=== PATIENT | female | born 1985 | race Hispanic/Latino ===

== ENCOUNTER 2018-11-12 06:32 | Emergency (ER) | payer SELFPAY ==
--- NOTE | 2018-11-12 09:15 | RAD REPORT ---
EXAM DESCRIPTION: US - Abdomen Exam Limited - 11/12/2018 8:16 am CLINICAL HISTORY: Abdominal pain. COMPARISON: None. FINDINGS: A 4.4 x 2 centimeter irregularly-shaped heterogeneous mass extends from the skin surface i nto the subcutaneous tissues anteriorly abutting the anterior abdominal wall musculature near the sit e of prior surgery. This area is palpable. IMPRESSION: 4.4 x 2 centimeter heterogeneous mass has nonspecific characteristics. It may represent an inflammatory mass. Hematoma/abscess probably are less likely considerations
--- NOTE | 2018-11-12 09:18 | ER ---
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 cc3 Patient said she's had this in 2007. Transition of care: patient was not received from another setting of care. Onset of symptoms was November 05, 2018. Risk Assessment: Do you want to hurt yourself or someone else? Patient reports no desire to harm self or others. Initial Sepsis Screen: Does the patient meet any 2 criteria? No. Patient's initial sepsis screen is negative. Does the patient have a suspected source of infection? No. Patient's initial sepsis screen is negative. Care prior to arrival: None. 06:40 Method Of Arrival: Ambulatory cc3 06:40 Acuity: ALEXANDER 4 cc3 Triage Assessment: 06:40 General: Appears in no apparent distress. comfortable, Behavior is calm, cooperative, cc3 appropriate for age. Pain: Complains of pain in incision site. EENT: No signs and/or symptoms were reported regarding the EENT system. Neuro: Level of Consciousness is awake, alert, obeys commands, Oriented to person, place, time, situation, Appropriate for age. Cardiovascular: Denies chest pain, Patient's skin is warm and dry. Respiratory: Airway is patent Respiratory effort is even, unlabored, Respiratory pattern is regular, symmetrical. 06:40 GI: Abdomen is round non-distended. cc3 06:40 : No signs and/or symptoms were reported regarding the genitourinary system. Derm: cc3 Reports felt a bump in her incision site. Musculoskeletal: Circulation, motion, and sensation intact. Range of motion: intact in all extremities. 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 - Social history:: Smoking status: Patient/guardian denies using tobacco, never smoked. - Ebola Screening: : No symptoms or risks identified at this time. Screenin:40 Abuse screen: Denies threats or abuse. Denies injuries from another. Nutritional cc3 screening: No deficits noted. Tuberculosis screening: No symptoms or risk factors identified. Fall Risk Ambulatory Aid- None/Bed Rest/Nurse Assist (0 pts). Gait- Normal/Bed Rest/Wheelchair (0 pts) Mental Status- Oriented to own ability (0 pts). Assessment: 07:06 Reassessment: Patient appears in no apparent distress at this time. Patient and/or sg family updated on plan of care and expected duration. Pain level reassessed. Patient is alert, oriented x 3, equal unlabored respirations, skin warm/dry/pink. pt calm, using personal cell phone laying supine in bed, bed in low and locked position call light within reach, pt remains on monitors at this time, awaiting orders will continue to monitor. Vital Signs: 06:40 BP 167 / 108; Pulse 75; Resp 19 S; Temp 98.2(O); Pulse Ox 95% on R/A; Weight 75.75 kg cc3 (R); Height 5 ft. 2 in. (157.48 cm) (R); 06:40 Body Mass Index 30.54 (75.75 kg, 157.48 cm) cc3 ED Course: 06:37 Patient arrived in ED. ds1 06:40 Arm band placed on right wrist. Patient notified of wait time. cc3 06:40 Patient has correct armband on for positive identification. Bed in low position. Call cc3 light in reach. Side rails up X 1. Pulse ox on. NIBP on. 06:42 Sánchez Burciaga PA is PHCP. jr8 06:42 Jordin Cali MD is Attending Physician. jr8 06:55 Triage completed. cc3 07:00 Report given to CARTER Grayson. cc3 07:06 Kenan Bond RN is Primary Nurse. sg 07:50 US Abdomen Limited In Process Unspecified. EDMS 08:20 Ultrasound completed. hr 09:16 Jimmie Cotton MD is Referral Physician. jr8 Administered Medications: No medications were administered Outcome: 09:17 Discharge ordered by . jr8 09:44 Patient left the ED. sg Signatures: Dispatcher [employer] Kenan Ann RN RN sg Rod, Haley hr Sanford, Fatoumata ds1 Sánchez Burciaga PA PA jr8 Vaishali aGmez cc3 Corrections: (The following items were deleted from the chart) 07:05 06:40 Respiratory: Airway is patent Respiratory effort is even, unlabored, Respiratory cc3 pattern is regular, symmetrical, cc3
--- NOTE | 2018-11-12 09:18 | EDPHYS ---
Physician Documentation [facility] Name: Erin Hurst Age: 33 yrs Sex: Female : 1985 Arrival Date: 11/12/2018 Time: 06:37 Bed 15 Private MD: ED Physician Jordin Cali HPI: 11/12 07:19 This 33 yrs old Female presents to ER via Ambulatory with complaints of jr8 Pain. 07:19 Patient stated that she has had pain and drainage over and old scar that jr8 started yesterday. Severity of symptoms: At their worst the symptoms were mild in the emergency department the symptoms are unchanged. The patient has not experienced similar symptoms in the past. The patient has not recently seen a physician. 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 - Social history:: Smoking status: Patient/guardian denies using tobacco, never smoked. - Ebola Screening: : No symptoms or risks identified at this time. ROS: 07:19 Eyes: Negative for injury, pain, redness, and discharge, ENT: Negative for injury, jr8 pain, and discharge, Neck: Negative for injury, pain, and swelling, Cardiovascular: Negative for chest pain, palpitations, and edema, Respiratory: Negative for shortness of breath, cough, wheezing, and pleuritic chest pain, Abdomen/GI: Negative for abdominal pain, nausea, vomiting, diarrhea, and constipation, Back: Negative for injury and pain, MS/Extremity: Negative for injury and deformity, Neuro: Negative for headache, weakness, numbness, tingling, and seizure. 07:19 Skin: Negative for injury, rash, and discoloration. Exam: 07:19 Eyes: Pupils equal round and reactive to light, extra-ocular motions intact. Lids and jr8 lashes normal. Conjunctiva and sclera are non-icteric and not injected. Cornea within normal limits. Periorbital areas with no swelling, redness, or edema. ENT: Nares patent. No nasal discharge, no septal abnormalities noted. Tympanic membranes are normal and external auditory canals are clear. Oropharynx with no redness, swelling, or masses, exudates, or evidence of obstruction, uvula midline. Mucous membranes moist. Neck: Trachea midline, no thyromegaly or masses palpated, and no cervical lymphadenopathy. Supple, full range of motion without nuchal rigidity, or vertebral point tenderness. No Meningismus. Cardiovascular: Regular rate and rhythm with a normal S1 and S2. No gallops, murmurs, or rubs. Normal PMI, no JVD. No pulse deficits. Respiratory: Lungs have equal breath sounds bilaterally, clear to auscultation and percussion. No rales, rhonchi or wheezes noted. No increased work of breathing, no retractions or nasal flaring. Back: No spinal tenderness. No costovertebral tenderness. Full range of motion. Skin: Warm, dry with normal turgor. Normal color with no rashes, no lesions, and no evidence of cellulitis. MS/ Extremity: Pulses equal, no cyanosis. Neurovascular intact. Full, normal range of motion. Neuro: Awake and alert, GCS 15, oriented to person, place, time, and situation. Cranial nerves II-XII grossly intact. Motor strength 5/5 in all extremities. Sensory grossly intact. Cerebellar exam normal. Normal gait. 07:19 Abdomen/GI: Inspection: obese scar(s), are noted in the lower abdomen, mild serous and bloody drainage noted to right lower abdomen. Firm hard tissue felt deep to that site. No erythema or defined abscess noted , Bowel sounds: active, Palpation: abdomen is soft and non-tender, in all quadrants, Indicators: McBurney's point is not tender, Bailey's sign is negative, Rovsing's sign is negative, Liver: tenderness, is not appreciated. Vital Signs: 06:40 BP 167 / 108; Pulse 75; Resp 19 S; Temp 98.2(O); Pulse Ox 95% on R/A; Weight 75.75 kg cc3 (R); Height 5 ft. 2 in. (157.48 cm) (R); 06:40 Body Mass Index 30.54 (75.75 kg, 157.48 cm) cc3 MDM: 06:42 Patient medically screened. jr8 09:16 Data reviewed: vital signs, nurses notes, radiologic studies, ultrasound, and as a jr8 result, I will discharge patient. Data interpreted: Pulse oximetry: on room air is 95 %. Interpretation: normal. Counseling: I had a detailed discussion with the patient and/or guardian regarding: the historical points, exam findings, and any diagnostic results supporting the discharge/admit diagnosis, radiology results, the need for outpatient follow up, a general surgeon, to return to the emergency department if symptoms worsen or persist or if there are any questions or concerns that arise at home. 11/12 07:19 Order name: US Abdomen Limited; Complete Time: 09:16 jr8 Administered Medications: No medications were administered Disposition: 11/12/18 09:17 Discharged to Home. 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 - Condition is Stable. - Discharge Instructions: Skin Abscess. - Prescriptions for Mobic 7.5 mg Oral Tablet - take 1 tablet by ORAL route once daily take with food; 7 tablet. Bactrim DS 800- 160 mg Oral Tablet - take 1 tablet by ORAL route every 12 hours for 7 days; 14 tablet. Tramadol 50 mg Oral Tablet - take 2 tablets by ORAL route every 8 hours as needed; 18 tablet. - Medication Reconciliation Form, Thank You Letter, Antibiotic Education, Prescription Opioid Use form. - Follow up: Jimmie Cotton MD; When: 1 week; Reason: Recheck today's complaints, Continuance of care, Re-evaluation by your physician. - Problem is new. - Symptoms have improved. Signatures: Dispatcher [employer] EDMS Kenan Bond RN RN Sánchez Gonzalez PA PA jr8 Vaishali Gamez cc3 Corrections: (The following items were deleted from the chart) 09:44 09:17 11/12/2018 09:17 Discharged to Home. Impression: Benign neoplasm of connective sg and other soft tissue of abdomen. Condition is Stable. Forms are Medication Reconciliation Form, Thank You Letter, Antibiotic Education, Prescription Opioid Use. Follow up: Jimmie Cotton; When: 1 week; Reason: Recheck today's complaints, Continuance of care, Re-evaluation by your physician. Problem is new. Symptoms have improved. jr8
[2018-11-12 09:49] VITALS: BP 167/108; TEMP 98.2; O2SAT 95
== END 2018-11-12 09:44 | disposition home or self-care (01) ==
LOC: ER 06:32
DX: D21.4 Benign neoplasm of connective and other soft tissue of abdomen (principal); I10 Essential (primary) hypertension; Z88.1 Allergy status to other antibiotic agents
CPT/HCPCS: 76705; 99283

== ENCOUNTER 2021-06-09 10:03 | Emergency (ER) | payer SELFPAY ==
[2021-06-09 10:25] LABS: Urine Blood Trace-lysed (Negative); Urine Glucose Negative (Negative); Urine Protein Negative (Negative); Urine Specific Gravity 1.025 (1.005-1.030); Urine pH 6.5 (5.0-7.0)
[2021-06-09 11:31] LABS: Urine Specific Gravity/Preg 1.025 (1.005-1.030)
--- NOTE | 2021-06-09 11:52 | RAD REPORT ---
EXAM DESCRIPTION: US - Extremity Nonvascular Complete - 06/09/2021 11:33 am CLINICAL HISTORY: r/o abscess COMPARISON: CT HEAD SPINE CAP W CONTRAST dated 05/20/2011 FINDINGS: Complex subcutaneous fluid collection near the right inguinal canal measuring 4 cm x 3.9 c m. Question some retracting clot within portions of the collection. IMPRESSION: Complex superficial fluid collection in the right inguinal region may be a hematoma as t here is a suggestion of some retracting clot. The sterility is indeterminate by ultrasound. The patie nt had a soft tissue mass at this location on the CT from 05/20/2011. One consideration would be an e ndometrioma, particularly if the patient has had a prior . Nonemergent MRI with without cont rast of the pelvis could better evaluate.
--- NOTE | 2021-06-09 12:10 | EDPHYS ---
Physician Documentation [facility] Name: Erin Hurst Age: 36 yrs Sex: Female : 1985 Arrival Date: 06/09/2021 Time: 10:06 Bed 18 Private MD: ED Physician Favio Palacios HPI: 06/09 18:49 This 36 yrs old Female presents to ER via Ambulatory with complaints of kdr Abdominal Pain. 18:49 The patient presents with abdominal pain right lower quadrant. Onset: The kdr symptoms/episode began/occurred suddenly, today. The symptoms do not radiate. Associated signs and symptoms: none. The symptoms are described as achy, sharp. Modifying factors: The symptoms are alleviated by nothing, the symptoms are aggravated by movement, pressure, touching the area. Severity of pain: At its worst the pain was moderate severe this morning, today, in the emergency department the pain has improved markedly. The patient has experienced similar episodes in the past, chronically, Has been occurring intermittently for years. The patient has not recently seen a physician. Patient has had right lower quadrant pain abdominal pain for many years since her last which was approximately 13 years ago. The pain comes and goes without any specific precipitating event. She does not appear to be toxic or in any way acutely ill in the ED at this time. The pain does seem to be associated with her incision on the right aspect. The time to time it will drain a bloody material but otherwise just normally hurts from time to time . 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 - Social history:: Smoking status: Patient denies any tobacco usage or history of. ROS: 18:49 Constitutional: Negative for fever, chills, and weight loss, Eyes: Negative for injury, kdr pain, redness, and discharge, ENT: Negative for injury, pain, and discharge, Neck: Negative for injury, pain, and swelling, Cardiovascular: Negative for chest pain, palpitations, and edema, Respiratory: Negative for shortness of breath, cough, wheezing, and pleuritic chest pain, Back: Negative for injury and pain, : Negative for injury, bleeding, discharge, and swelling, MS/Extremity: Negative for injury and deformity, Skin: Negative for injury, rash, and discoloration, Neuro: Negative for headache, weakness, numbness, tingling, and seizure activity. Psych: Negative for depression, anxiety, suicide ideation, homicidal ideation, and hallucinations, Allergy/Immunology: Negative for hives, rash, and allergies, Endocrine: Negative for neck swelling, polydipsia, polyuria, polyphagia, and marked weight changes, Hematologic/Lymphatic: Negative for swollen nodes, abnormal bleeding, and unusual bruising. 18:49 Abdomen/GI: Positive for abdominal pain, Occasionally a draining cystic structure on the right lower quadrant on the lateral aspect of the incision, Negative for nausea, vomiting, and diarrhea, abdominal cramps, abdominal distension, black/tarry stool, rectal pain, rectal bleeding. Exam: 18:49 Constitutional: This is a well developed, well nourished patient who is awake, alert, kdr and in no acute distress. Head/Face: Normocephalic, atraumatic. Eyes: Pupils equal round and reactive to light, extra-ocular motions intact. Lids and lashes normal. Conjunctiva and sclera are non-icteric and not injected. Cornea within normal limits. Periorbital areas with no swelling, redness, or edema. Neck: Trachea midline, no thyromegaly or masses palpated, and no cervical lymphadenopathy. Supple, full range of motion without nuchal rigidity, or vertebral point tenderness. No Meningismus. Chest/axilla: Normal chest wall appearance and motion. Nontender with no deformity. No lesions are appreciated. Cardiovascular: Regular rate and rhythm with a normal S1 and S2. No gallops, murmurs, or rubs. Normal PMI, no JVD. No pulse deficits. Respiratory: Lungs have equal breath sounds bilaterally, clear to auscultation and percussion. No rales, rhonchi or wheezes noted. No increased work of breathing, no retractions or nasal flaring. Back: No spinal tenderness. No costovertebral tenderness. Full range of motion. Skin: Warm, dry with normal turgor. Normal color with no rashes, no lesions, and no evidence of cellulitis. MS/ Extremity: Pulses equal, no cyanosis. Neurovascular intact. Full, normal range of motion. Neuro: Awake and alert, GCS 15, oriented to person, place, time, and situation. Cranial nerves II-XII grossly intact. Motor strength 5/5 in all extremities. Sensory grossly intact. Cerebellar exam normal. Normal gait. Psych: Awake, alert, with orientation to person, place and time. Behavior, mood, and affect are within normal limits. 18:49 Abdomen/GI: Inspection: distension, obese Bowel sounds: active, Palpation: soft, mild abdominal tenderness, in the right lower quadrant, There is a superficial possibly cystic structure on the right lateral aspect of the prior incision. It is minimally tender and there is no drainage. It is not fluctuant. It is not warm or erythematous, mass, is not appreciated, rebound tenderness, is not appreciated. Vital Signs: 10:12 BP 145 / 101; Pulse 97; Resp 17; Temp 98.5(TE); Pulse Ox 100% on R/A; Weight 74.84 kg tw2 (R); Height 5 ft. 2 in. (157.48 cm) (R); Pain 06/06; 10:12 Body Mass Index 30.18 (74.84 kg, 157.48 cm) tw2 10:12 "when it comes" tw2 MDM: 12:10 Patient medically screened. kdr 18:55 Data reviewed: vital signs, nurses notes. Counseling: I had a detailed discussion with kdr the patient and/or guardian regarding: the historical points, exam findings, and any diagnostic results supporting the discharge/admit diagnosis, lab results, radiology results, the need for outpatient follow up. 06/09 10:25 Order name: Urine Dipstick-Ancillary; Complete Time: 12:02 EDMS 06/09 10:31 Order name: Urine --Ancillary (enter results); Complete Time: 12:02 bd 06/09 10:44 Order name: Basic Metabolic Panel kdr 06/09 10:44 Order name: CBC with Diff kdr 06/09 10:44 Order name: Hepatic Function kdr 06/09 10:44 Order name: Lipase kdr 06/09 10:44 Order name: IV Saline Lock; Complete Time: 12:44 kdr 06/09 10:44 Order name: Labs collected and sent; Complete Time: 12:44 kdr 06/09 11:32 Order name: Extremity Nonvascular Complete; Complete Time: 12:02 EDMS Administered Medications: No medications were administered Disposition Summary: 06/09/21 12:10 Discharge Ordered Location: Home kdr Problem: an ongoing problem kdr Symptoms: have improved kdr Condition: Stable kdr Diagnosis - Lower abdominal pain, unspecified - Right lower quadrant kdr - Nonspecific fluid collection superficially in the right lower quadrant. kdr Followup: kdr - With: Private Physician - When: 2 - 3 days - Reason: If symptoms return, Further diagnostic work-up, Recheck today's complaints, Continuance of care, Re-evaluation by your physician Discharge Instructions: - Abdominal Pain, Adult kdr - Thyroglossal Cyst Removal, Care After kdr - Discharge Summary Sheet tw2 Forms: - Medication Reconciliation Form kdr - Thank You Letter kdr - Prescription Opioid Use kdr Prescriptions: - Tramadol 50 mg Oral Tablet - take 1 tablet by ORAL route every 8 hours as needed; 12 tablet; Refills: 0, kdr Product Selection Permitted Signatures: Dispatcher [employer] EDMS Favio Palacios MD MD kdr Kylee Suero RN RN tw2 Corrections: (The following items were deleted from the chart) 11:32 10:52 Abdomen Limited+[id number] ordered. EDMN EDMS
--- NOTE | 2021-06-09 12:10 | ER ---
Nurse's Notes [facility] Name: Erin Hurst Age: 36 yrs Sex: Female : 1985 Arrival Date: 06/09/2021 Time: 10:06 Bed 18 Private MD: Diagnosis: Lower abdominal pain, unspecified-Right lower quadrant;Nonspecific fluid collection superficially in the right lower quadrant. Presentation: 06/09 10:09 Chief complaint: Patient states: i keep having this sharp pain right on my tw2 incision right where the scar is and it is turning purple. the youngest is 13 years old. and sometimes it drains sometimes and it just hurts. the only way it eases the pain is if i lay on my stomach. it comes and goes. Coronavirus screen: At this time, the client does not indicate any symptoms associated with coronavirus-19. Ebola Screen: Patient denies travel to an Ebola-affected area in the 21 days before illness onset. 10:09 Method Of Arrival: Ambulatory tw2 10:15 Initial Sepsis Screen: Does the patient meet any 2 criteria? HR > 90 bpm. Does the tw2 patient have a suspected source of infection? No. Patient's initial sepsis screen is negative. Risk Assessment: Do you want to hurt yourself or someone else? Patient reports no desire to harm self or others. Onset of symptoms was June 09, 2021. 10:15 Acuity: ALEXANDER 3 tw2 Triage Assessment: 10:13 General: Appears in no apparent distress. uncomfortable, Behavior is calm, cooperative, tw2 appropriate for age. Pain: Complains of pain in abdomen and pelvis. GI: Reports lower abdominal pain, upper abdominal pain. 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 - Social history:: Smoking status: Patient denies any tobacco usage or history of. Screenin:17 Abuse screen: Denies threats or abuse. Nutritional screening: No deficits noted. tw2 Tuberculosis screening: No symptoms or risk factors identified. Fall Risk None identified. Assessment: 10:17 Reassessment: pt given urine specimen cup for sample collection at this time. tw2 12:47 GI: Bowel sounds present X 4 quads. Abd is soft. ld1 Vital Signs: 10:12 BP 145 / 101; Pulse 97; Resp 17; Temp 98.5(TE); Pulse Ox 100% on R/A; Weight 74.84 kg tw2 (R); Height 5 ft. 2 in. (157.48 cm) (R); Pain 10/10; 10:12 Body Mass Index 30.18 (74.84 kg, 157.48 cm) tw2 10:12 "when it comes" tw2 ED Course: 10:06 Patient arrived in ED. mr 10:06 Favio Palacios MD is Attending Physician. kdr 10:13 Arm band placed on. tw2 10:15 Triage completed. tw2 10:15 Dean Waller RN is Primary Nurse. ch5 10:15 Bed in low position. Call light in reach. tw2 10:25 Urine collected: clean catch specimen, cloudy. mb4 11:33 Extremity Nonvascular Complete In Process Unspecified. EDMS 11:51 Assisted to bathroom. mb4 12:03 Inserted saline lock: 22 gauge in right antecubital area, using aseptic technique. mb4 Blood collected. 12:03 Initial lab(s) drawn, by la, sent to lab. mb4 12:46 No provider procedures requiring assistance completed. IV discontinued, intact, ld1 bleeding controlled, No redness/swelling at site. Administered Medications: No medications were administered Outcome: 12:10 Discharge ordered by . kdr 12:47 Discharged to home ambulatory. ld1 12:47 Condition: stable 12:47 Discharge instructions given to patient, Instructed on discharge instructions, follow up and referral plans. medication usage, Demonstrated understanding of instructions, follow-up care, medications, Prescriptions given X 1. 12:47 Patient left the ED. ld1 Signatures: Dispatcher [employer] EDMS Favio Palacios MD MD kdr Rivera, Mary mr Kylee Suero RN RN tw2 Ludmila Fierro mb4 Ivet Nance RN RN ld1 Sridhar, Christopher, RN RN ch5
[2021-06-09 12:24] LABS: Basophils % 0.6 % (0-1.3); Hematocrit 40.4 % (36.0-45.0); Lymphocytes % 29.3 % (15.3-44.8); MPV 8.6 fL (7.6-11.3); RBC Red Blood Cell Count 4.67 M/uL (3.86-4.86)
[2021-06-09 12:33] LABS: ALT/SGPT 72 U/L (12-78); AST/SGOT 192 U/L (15-37); Albumin 4.1 g/dL (3.4-5.0); Alkaline Phosphatase 102 U/L (45-117); BUN Blood Urea Nitrogen 8 mg/dL (7-18); Bicarbonate 26 mmol/L (21-32); Bilirubin Direct < 0.1 mg/dL (0-0.2); Bilirubin Total 0.3 mg/dL (0.2-1.0); Glucose Level 96 mg/dL (74-106); Lipase 145 U/L (73-393); Potassium 3.7 mmol/L (3.5-5.1); Protein, Total 8.7 g/dL (6.4-8.2); Sodium Level 140 mmol/L (136-145)
[2021-06-09 13:15] VITALS: BP 145/101; TEMP 98.5; O2SAT 100
== END 2021-06-09 12:47 | disposition home or self-care (01) ==
LOC: ER 10:03
DX: R22.2 Localized swelling, mass and lump, trunk (principal); I10 Essential (primary) hypertension; F41.9 Anxiety disorder, unspecified
CPT/HCPCS: 36415; 76881; 80048; 80076; 81003; 81025; 83690; 85025; 99284

== ENCOUNTER 2022-08-28 19:15 | Emergency (ER) | payer SELFPAY ==
[2022-08-28 21:05] LABS: Absolute Lymphocytes (CBC) 2.4 K/uL (0.7-4.9); Hematocrit 40.7 % (36.0-45.0); Lymphocytes % 28.3 % (15.3-44.8); MCV 82.2 fL (80-100); MPV 8.3 fL (7.6-11.3); RBC Red Blood Cell Count 4.95 M/uL (3.86-4.86)
[2022-08-28 21:08] LABS: Urine Blood Trace-intact (Negative); Urine Glucose Negative (Negative); Urine Protein 2+ (Negative); Urine Specific Gravity >=1.030 (1.005-1.030); Urine pH 5.5 (5.0-7.0)
[2022-08-28 21:11] LABS: Protime INR 1.01
[2022-08-28 21:26] LABS: Barbiturates NEGATIVE (NEGATIVE); Benzodiazepines NEGATIVE (NEGATIVE); Cocaine NEGATIVE (NEGATIVE); METHAMPHETAM NEGATIVE (NEGATIVE); Methadone NEGATIVE (NEGATIVE); Opiates NEGATIVE (NEGATIVE); Phencyclidine NEGATIVE (NEGATIVE); THC Cannibis NEGATIVE (NEGATIVE)
[2022-08-28 21:37] LABS: ALT/SGPT 56 U/L (13-56); AST/SGOT 38 U/L (15-37); Alkaline Phosphatase 126 U/L (45-117); BUN Blood Urea Nitrogen 8 mg/dL (7-18); Bicarbonate 27 mmol/L (21-32); Bilirubin Direct 0.1 mg/dL (0-0.2); Bilirubin Total 0.3 mg/dL (0.2-1.0); Glomerular Filtration Rate 113 ml/min (=/>90); Glucose Level 107 mg/dL (74-106); Potassium 3.3 mmol/L (3.5-5.1); Sodium Level 138 mmol/L (136-145)
[2022-08-28 21:38] LABS: NT PRO-BNP 44 pg/mL (<125); Protein, Total 8.9 g/dL (6.4-8.2); Troponin High Sensitivity 5.2 pg/mL (<58.9)
--- NOTE | 2022-08-28 22:49 | ER ---
Nurse's Notes [facility] Name: Erin Hurst Age: 37 yrs Sex: Female : 1985 Arrival Date: 08/28/2022 Time: 19:17 Bed 14 Private MD: Diagnosis: Anxiety disorder, unspecified;Hypokalemia Presentation: 08/28 19:32 Chief complaint: Patient states: corporate compliance officer showed up at house due to argument kr3 between patient and her mother. Her phone got cut off and she feels like someone is trying to hack her phone because it has been hacked before. the officers brought her to the hospital to be checked out for AMS. Coronavirus screen: Vaccine status: Patient reports being unvaccinated. Client denies travel out of the [place] in the last 14 days. Ebola Screen: Patient denies travel to an Ebola-affected area in the 21 days before illness onset. Initial Sepsis Screen: Does the patient meet any 2 criteria? No. Patient's initial sepsis screen is negative. Does the patient have a suspected source of infection? No. Patient's initial sepsis screen is negative. Risk Assessment: Do you want to hurt yourself or someone else? Patient reports no desire to harm self or others. Onset of symptoms was August 28, 2022. 19:32 Method Of Arrival: Law Enforcement: Mary ESTRADA kr3 19:32 Acuity: ALEXANDER 4 kr3 Triage Assessment: 19:41 General: Appears distressed, comfortable, Behavior is cooperative, anxious, crying. kr3 Historical: - Allergies: 19:40 No Known Allergies; kr3 - Home Meds: 23:58 None [Active]; kb3 - PMHx: 19:40 Anxiety; Hypertension; kr3 - PSHx: 19:40 section; kr3 - Immunization history:: Adult Immunizations not up to date. - Social history:: Smoking status: Patient denies any tobacco usage or history of. Screenin:00 [facility] ED Fall Risk Assessment (Adult) History of falling in the last 3 months, kb3 including since admission No falls in past 3 months (0 pts) Confusion or Disorientation No (0 pts) Intoxicated or Sedated No (0 pts) Impaired Gait No (0 pts) Mobility Assist Device Used No (0 pt) Altered Elimination No (0 pt) Score/Fall Risk Level 0 - 2 = Low Risk Oriented to surroundings, Maintained a safe environment, Educated pt \\T\\ family on fall prevention, incl call for assistance when getting out of bed, Assessed \\T\\ reinforced patient's understanding of fall precautions, Provided non-skid footwear, Hourly rounding (assess needs \\T\\ fall precautionary measures) done, Used ambulatory aids as needed (educated on \\T\\ assisted with), Used gait belt as appropriate. Abuse screen: Denies threats or abuse. Denies injuries from another. Nutritional screening: No deficits noted. Tuberculosis screening: No symptoms or risk factors identified. Assessment: 22:00 General: Appears in no apparent distress. Behavior is calm, cooperative, Received care kb3 of pt from [facility]. Pt is AAO x4. Reports that her phone was cut off and she thought "someone might be messing with her" so she called the police who suggested she come to the ER for evaluation. Pt reports hx of anxiety and HTN but no other medical or psychiatric issues. . 22:00 Pain: Denies pain. Neuro: Level of Consciousness is awake, alert, obeys commands, kb3 Oriented to person, place, time, situation, [place] are equal bilaterally Moves all extremities. Gait is steady, Speech is normal, Facial symmetry appears normal, Pupils are PERRLA, Pupil Size: 4 Denies weakness dizziness, headache. Vital Signs: 19:32 BP 163 / 125; Pulse 94; Resp 18; Temp 99.0; Pulse Ox 97% on R/A; Weight 77.56 kg; kr3 Height 5 ft. 2 in. (157.48 cm); Pain 2/10; 21:57 BP 149 / 113; Pulse 84; Resp 20; Pulse Ox 100% ; kb3 23:30 BP 141 / 101; Pulse 82; Resp 20; Pulse Ox 99% ; kb3 19:32 Body Mass Index 31.28 (77.56 kg, 157.48 cm) kr3 NIH Stroke Scale Scores: 22:44 NIHSS Score: 0 [facility] ED Course: 19:17 Patient arrived in ED. jj6 19:40 Triage completed. kr3 19:42 Arm band placed on right wrist. kr3 20:27 Rodrigo Land MD is Attending Physician. [facility] 20:55 Inserted saline lock: 22 gauge in right antecubital area, using aseptic technique. mb4 Blood collected. 20:55 Initial lab(s) drawn, by me, sent to lab. mb4 21:51 Alejandra Sánchez, RN is Primary Nurse. kb3 22:00 Patient has correct armband on for positive identification. Bed in low position. Call kb3 light in reach. Pillow given. 22:00 No provider procedures requiring assistance completed. kb3 22:48 Ross Gary MD is Referral Physician. za 23:30 IV discontinued, intact, bleeding controlled, No redness/swelling at site. Pressure kb3 dressing applied. Administered Medications: 22:57 Drug: Potassium Effervescent Tablet 25 mEq Route: PO; kb3 23:30 Follow up: Response: No adverse reaction kb3 Medication: 22:00 VIS not applicable for this client. kb3 Outcome: 22:49 Discharge ordered by . za 23:58 Discharged to home ambulatory. kb3 23:58 Condition: stable 23:58 Discharge instructions given to patient, Instructed on discharge instructions, follow up and referral plans. medication usage, Demonstrated understanding of instructions, follow-up care, medications, Prescriptions given X 1. 08/29 00:00 Patient left the ED. kb3 NIH Stroke Scale - NIH Stroke Score Date: 08/28/2022 Time: 22:44 Total Score = 0 1a. Level of Consciousness (LOC) - 0(Alert) 1b. Level of Consciousness (LOC) (Month \\T\\ Age) - 0(Both) 1c. LOC Commands (Open \\T\\ Closes Eyes/Software Sales) - 0(Both) 2. Best Gaze (Lateral Gaze Paresis) - 0(Normal) 3. Visual Field Loss - 0(No visual loss) 4. Facial Palsy - 0(Normal) 5a. Left Arm: Motor (10-second hold) - 0(No drift) 5b. Right Arm: Motor (10-second hold) - 0(No drift) 6a. Left Leg: Motor (5-second hold - always test supine) - 0(No drift) 6b. Right Leg: Motor (5-second hold - always test supine) - 0(No drift) 7. Limb Ataxia (finger/nose \\T\\ heel/gomez - test with eyes open) - 0(Absent) 8. Sensory Loss (pinprick arms/legs/face) - 0(Normal) 9. Best Language: Aphasia (description/naming/reading) - 0(No aphasia) 10. Dysarthria (speech clarity - read or repeat words) - 0(Normal) 11. Extinction and Inattention (visual/tactile/auditory/spatial/personal) - 0(No abnormality) Initials: za Signatures: Rodrigo Land MD MD cha Baxter, Mackenzie mb4 Seema Keys jj6 Glenna Lopez RN RN kr3 Alejandra Sánchez RN RN kb3 Corrections: (The following items were deleted from the chart) 08/28 23:59 23:58 Home Meds: losartan Oral; kb3 kb3 23:59 23:58 Home Meds: venlafaxine Oral; kb3 kb3
--- NOTE | 2022-08-28 22:50 | EDPHYS ---
Physician Documentation [facility] Name: Erin Hurst Age: 37 yrs Sex: Female : 1985 Arrival Date: 08/28/2022 Time: 19:17 Bed 14 Private MD: MADDIE Physician Rodrigo Land HPI: 08/28 22:43 This 37 yrs old Female presents to ER via Law Enforcement with complaints of za Anxiety, Altered Mental Status. 22:43 This 37 yrs old Female presents to ER via Law Enforcement with complaints of za Anxiety, Altered Mental Status. 22:43 The patient presents with trouble concentrating. Onset: The symptoms/episode za began/occurred today. Possible causes: STRESS. Historical: - Allergies: 19:40 No Known Allergies; kr3 - Home Meds: 23:58 None [Active]; kb3 - PMHx: 19:40 Anxiety; Hypertension; kr3 - PSHx: 19:40 section; kr3 - Immunization history:: Adult Immunizations not up to date. - Social history:: Smoking status: Patient denies any tobacco usage or history of. ROS: 22:44 Constitutional: Negative for fever, chills, and weight loss, Eyes: Negative for injury, za pain, redness, and discharge, ENT: Negative for injury, pain, and discharge, Neck: Negative for injury, pain, and swelling, Cardiovascular: Negative for chest pain, palpitations, and edema, Respiratory: Negative for shortness of breath, cough, wheezing, and pleuritic chest pain, Abdomen/GI: Negative for abdominal pain, nausea, vomiting, diarrhea, and constipation, Back: Negative for injury and pain, : Negative for injury, bleeding, discharge, and swelling, MS/Extremity: Negative for injury and deformity, Skin: Negative for injury, rash, and discoloration, Neuro: Negative for headache, weakness, numbness, tingling, and seizure, Allergy/Immunology: Negative for hives, rash, and allergies, Endocrine: Negative for neck swelling, polydipsia, polyuria, polyphagia, and marked weight changes, Hematologic/Lymphatic: Negative for swollen nodes, abnormal bleeding, and unusual bruising. 22:44 Psych: Positive for anxiety. Exam: 22:44 Constitutional: This is a well developed, well nourished patient who is awake, alert, za and in no acute distress. Head/Face: Normocephalic, atraumatic. Eyes: Pupils equal round and reactive to light, extra-ocular motions intact. Lids and lashes normal. Conjunctiva and sclera are non-icteric and not injected. Cornea within normal limits. Periorbital areas with no swelling, redness, or edema. ENT: Nares patent. No nasal discharge, no septal abnormalities noted. Tympanic membranes are normal and external auditory canals are clear. Oropharynx with no redness, swelling, or masses, exudates, or evidence of obstruction, uvula midline. Mucous membranes moist. Neck: Trachea midline, no thyromegaly or masses palpated, and no cervical lymphadenopathy. Supple, full range of motion without nuchal rigidity, or vertebral point tenderness. No Meningismus. Chest/axilla: Normal chest wall appearance and motion. Nontender with no deformity. No lesions are appreciated. Cardiovascular: Regular rate and rhythm with a normal S1 and S2. No gallops, murmurs, or rubs. Normal PMI, no JVD. No pulse deficits. Respiratory: Lungs have equal breath sounds bilaterally, clear to auscultation and percussion. No rales, rhonchi or wheezes noted. No increased work of breathing, no retractions or nasal flaring. Abdomen/GI: Soft, non-tender, with normal bowel sounds. No distension or tympany. No guarding or rebound. No evidence of tenderness throughout. Back: No spinal tenderness. No costovertebral tenderness. Full range of motion. Skin: Warm, dry with normal turgor. Normal color with no rashes, no lesions, and no evidence of cellulitis. MS/ Extremity: Pulses equal, no cyanosis. Neurovascular intact. Full, normal range of motion. Neuro: Awake and alert, GCS 15, oriented to person, place, time, and situation. Cranial nerves II-XII grossly intact. Motor strength 5/5 in all extremities. Sensory grossly intact. Cerebellar exam normal. Normal gait. 22:44 Psych: Behavior/mood is pleasant, cooperative, Affect is calm, Oriented to person, place, time, Patient having thoughts of suicide. Judgement / Insight is normal. Memory is normal. Delusions/hallucinations are not present. 22:52 ECG was reviewed by the Attending Physician. [facility] Vital Signs: 19:32 BP 163 / 125; Pulse 94; Resp 18; Temp 99.0; Pulse Ox 97% on R/A; Weight 77.56 kg; kr3 Height 5 ft. 2 in. (157.48 cm); Pain 2/10; 21:57 BP 149 / 113; Pulse 84; Resp 20; Pulse Ox 100% ; kb3 23:30 BP 141 / 101; Pulse 82; Resp 20; Pulse Ox 99% ; kb3 19:32 Body Mass Index 31.28 (77.56 kg, 157.48 cm) kr3 NIH Stroke Scale Scores: 22:44 NIHSS Score: 0 za MDM: 20:27 Patient medically screened. za 20:27 Patient medically screened. za 22:47 Differential diagnosis: drug withdrawal. acute psychotic break, depression. za Differential Diagnosis: electrolyte abnormality, alcohol intoxication, hypoglycemia, overdose, TIA, volume depletion. Data reviewed: vital signs, nurses notes, lab test result(s), EKG, radiologic studies. Data interpreted: engine monitor: rate is 84 beats/min, rhythm is regular, Pulse oximetry: on room air is 100 %. Test interpretation: by ED physician or midlevel provider: ECG. Counseling: I had a detailed discussion with the patient and/or guardian regarding: the historical points, exam findings, and any diagnostic results supporting the discharge/admit diagnosis, lab results, the need for outpatient follow up, for definitive care, a family practitioner, a psychiatrist. 08/28 20:28 Order name: Acetaminophen; Complete Time: 22:42 [facility] 08/28 20:28 Order name: Basic Metabolic Panel; Complete Time: 22:42 [facility] 08/28 20:28 Order name: CBC with Diff; Complete Time: 22:42 za 08/28 20:28 Order name: ETOH Level; Complete Time: 22:42 za 08/28 20:28 Order name: Hepatic Function; Complete Time: 22:42 za 08/28 20:28 Order name: PT-INR; Complete Time: 22:42 za 08/28 20:28 Order name: Ptt, Activated; Complete Time: 22:42 za 08/28 20:28 Order name: Salicylate; Complete Time: 22:42 [facility] 08/28 20:28 Order name: Urine Drug Screen; Complete Time: 22:42 [facility] 08/28 20:28 Order name: Troponin High Sensitivity; Complete Time: 22:42 za 08/28 20:28 Order name: BNP; Complete Time: 22:42 [facility] 08/28 21:08 Order name: Urine Dipstick-Ancillary; Complete Time: 22:42 EDMS 08/28 21:13 Order name: Urine --Ancillary (enter results); Complete Time: 22:42 mw2 08/28 20:28 Order name: EKG; Complete Time: 20:28 [facility] 08/28 20:28 Order name: EKG - Nurse/Tech; Complete Time: 22:52 [facility] 08/28 20:28 Order name: IV Saline Lock; Complete Time: 22:52 [facility] 08/28 20:28 Order name: Labs collected and sent; Complete Time: 22:52 [facility] 08/28 20:28 Order name: Suicide Screening (Martin); Complete Time: 22:52 [facility] 08/28 20:28 Order name: Urine Dipstick-Ancillary (obtain specimen); Complete Time: 22:52 [facility] EC:52 Rate is 79 beats/min. Rhythm is regular. QRS [place] is Normal. DC interval is normal. QRS za interval is normal. QT interval is normal. No Q waves. T waves are Normal. No ST changes noted. Clinical impression: Normal ECG and No evidence of ischemia. Interpreted by me. Reviewed by me. Administered Medications: 22:57 Drug: Potassium Effervescent Tablet 25 mEq Route: PO; kb3 23:30 Follow up: Response: No adverse reaction kb3 Disposition Summary: 08/28/22 22:49 Discharge Ordered Location: Home za Problem: new za Symptoms: have improved za Condition: Stable za Diagnosis - Anxiety disorder, unspecified za - Hypokalemia za Followup: za - With: Private Physician - When: 2 - 3 days - Reason: Recheck today's complaints, Continuance of care, Re-evaluation by your physician Followup: za - With: Ross Gary MD - When: 2 - 3 days - Reason: Recheck today's complaints, Re-evaluation by your physician Discharge Instructions: - Discharge Summary Sheet za - Panic Attack za - Potassium Content of Foods za - Panic Attack, [id number] za - Hypokalemia za - Supporting Someone With Anxiety za - Managing Anxiety, Adult za Forms: - Medication Reconciliation Form za - Thank You Letter za - Antibiotic Education za - Prescription Opioid Use za Prescriptions: - Hydroxyzine HCl 25 mg Oral Tablet - take 1 tablet by ORAL route every 6 hours As needed; 30 tablet; Refills: 0, za Product Selection Permitted NIH Stroke Scale - NIH Stroke Score Date: 08/28/2022 Time: 22:44 Total Score = 0 1a. Level of Consciousness (LOC) - 0(Alert) 1b. Level of Consciousness (LOC) (Month \T\ Age) - 0(Both) 1c. LOC Commands (Open \T\ Closes Eyes/Clinical Coordinator) - 0(Both) 2. Best Gaze (Lateral Gaze Paresis) - 0(Normal) 3. Visual Field Loss - 0(No visual loss) 4. Facial Palsy - 0(Normal) 5a. Left Arm: Motor (10-second hold) - 0(No drift) 5b. Right Arm: Motor (10-second hold) - 0(No drift) 6a. Left Leg: Motor (5-second hold - always test supine) - 0(No drift) 6b. Right Leg: Motor (5-second hold - always test supine) - 0(No drift) 7. Limb Ataxia (finger/nose \T\ heel/gomez - test with eyes open) - 0(Absent) 8. Sensory Loss (pinprick arms/legs/face) - 0(Normal) 9. Best Language: Aphasia (description/naming/reading) - 0(No aphasia) 10. Dysarthria (speech clarity - read or repeat words) - 0(Normal) 11. Extinction and Inattention (visual/tactile/auditory/spatial/personal) - 0(No abnormality) Initials: za Signatures: Dispatcher [employer] Rodrigo Granger MD MD cha Reid, Kelley RN RN kr3 Alejandra Sánchez RN RN kb3 Corrections: (The following items were deleted from the chart) 23:59 23:58 Home Meds: losartan Oral; kb3 kb3 23:59 23:58 Home Meds: venlafaxine Oral; kb3 kb3
[2022-08-28] MEDS ORDERED: POTASSIUM 25 MEQ EFFERV TAB ONE (22:57)
[2022-08-29 00:23] VITALS: TEMP 99
[2022-08-29 00:25] VITALS: BP 141/101; O2SAT 99
--- NOTE | 2022-08-30 14:33 | EKG ---
Test Date: 2022-08-28 Test Time: 22:48:24 Statistical Methods Professor: ABDIRASHID MEASUREMENT RESULTS: Intervals: Rate: 79 TN: 148 QRSD: 92 QT: 394 QTc: 451 [place]: P: 41 TN: 148 QRS: 0 T: 41 INTERPRETIVE STATEMENTS: Normal sinus rhythm Normal ECG No previous ECG available for comparison Electronically Signed On 08-30-22 14:31:50 PRIZER HAND by Lee Chadwick
== END 2022-08-29 | disposition home or self-care (01) ==
LOC: ER 19:15
DX: F41.9 Anxiety disorder, unspecified (principal); E87.6 Hypokalemia; I10 Essential (primary) hypertension
CPT/HCPCS: 36415; 80048; 80076; 80307; 80320; 80329; 81003; 81025; 83880; 84484; 85025; 85610; 85730; 93005; 99284

== ENCOUNTER 2025-04-14 07:50 | Emergency (ER) | payer SELFPAY ==
--- OUTSIDE RECORDS SUMMARY | 2025-04-14 07:54 | XMS REPORT | Continuity of Care Document ---
Author Name Unknown Address [address] [place] [address] [address] [place] [address] [facility] Address [address] [facility] [address] [place] [address] Care Team Providers Care Termite Inspector Name Role Phone ERASTO PEACE U Primary Care Physician Unavail able LUDIVINA DAVIS Attending Clinician Unavaila DARRYL Andres Attending Clinician Unavailab DELANO MurphyCE U Attending Clinician Unavailabl e SUHAIL SAHA Attending Clinician Unavail able JOHNY CLARK Attending Clinician Unavailabl HAIR Brizuela Attending Clinician Unavailable Norma RENEWABLE ENERGY TECHNICIAN, Liliana Pike Attending Clinician [phone] Ez Reina DO Attending Clinician [phone] [facility] Resident Attending Clinician Unavailab Antonio Palumbo MD Attending Clinician [phone] Akinsifanta FARHANAPAsha Attending Clinician + Issa Alonso Attending Clinician + [phone] ISSA RAYMOND Attending Clinician Unavailab almita Doctor Unassigned, [place] Attending Clinician U tataailJOHNY Watson Admitting Clinician Unavailtonja ring Payers Payer Name Policy Type Policy Number Effective Date Expirati on Date Source [facility] [place] [facility] [id number] 2022 00:00:00 Problems Condition Name Condition Details Condition Category Status Onset Date Resolution Date Last Treatment Date Treating Clinician Comments Source Over weight Over weight Disease Active 03 00:00: 00 [facility] Screen for STD (sexually transmitte d disease) Screen for STD (sexually transmitte d disease) Disease Active 04-24 00:00: 00 [facility] Former smoker Former smoker Disease Active 04-24 00:00: 00 [facility] General counseling and advice for contracept liliya management General counseling and advice for contracept liliya management Disease Active 12-03 00:00: 00 Overview: Formattin g of this note might be different from the original. ICD10 Diagnosis Term [employer] [facility] Generalize d anxiety disorder Generalize d anxiety disorder Disease Active 12-03 00:00: 00 [facility] Essential hypertensi on, benign Essential hypertensi on, benign Disease Active 12-03 00:00: 00 [facility] Allergies, Adverse Reactions, Alerts Allergy Name Allergy Type Status Severity Reaction(s) Onset Date Inactive Date Treating Clinician Comments Source NO KNOWN ALLERGIE S Drug Class Active [facility] Social History Social Habit Start Date Stop Date Quantity Comments Source History of tobacco use Cigarette Smoker [facility] Exposure to SARS-CoV-2 (event) Not sure [facility] Cigarettes smoked current (pack per day) - Reported 2021-02-25 00:00:00 2021-02-25 00:00:00 [facility] Cigarette pack-years 2021-02-25 00:00:00 2021-02-25 00:00:00 [facility] Tobacco use and exposure 2021-02-25 00:00:00 2021-02-25 00:00:00 Never used [facility] Alcohol intake 2021-02-25 00:00:00 2021-02-25 00:00:00 Current non-drinker of alcohol (finding) [facility] Alcohol Comment 2012-12-03 00:00:00 2012-12-03 00:00:00 social [facility] Sex Assigned At 1985 00:00:00 1985 00:00:00 [facility] Smoking Status Start Date Stop Date Source Unknown if ever smoked [facility] Former smoker 2021-02-25 00:00:00 2021-02-25 00:00:00 [facility] Medications Ordered Medication Name Filled Medication Name Start Date Stop Date Current Medication? Ordering Clinician Indication Dosage Frequency Signature (SIG) Comments Components Source losartan 50 mg tablet 02-26 00:28: 29 Yes 50mg Take 50 mg by mouth daily. [facility] venlafaxine HCl (EFFEXOR ORAL) 02-26 00:28: 29 Yes Take by mouth. [facility] ATENOLOL ORAL 02-25 21:15: 50 02-25 00:00 :00 No Take by mouth. [facility] ibuprofen 600 mg tablet 04-03 00:00: 00 02-25 00:00 :00 No [id number] 600mg Take 1 tablet by mouth every 6 (six) hours as needed for Pain (scale 4-6). [facility] sulfamethox azole-trime thoprim (BACTRIM) 400-80 mg per tablet 04-03 00:00: 00 04-11 04:59 :00 No [id number] 1{tbl} Take 1 tablet by mouth daily for 7 days. [facility] ATENOLOL ORAL 03-30 15:03: 54 Yes Take by mouth. [facility] ciprofloxac in HCl 500 mg tablet 03-11 00:00: 00 02-25 00:00 :00 No [id number] 500mg Take 1 tablet by mouth 2 (two) times daily. [facility] NUVARING 0.12-0.015 mg/24 hr vaginal insert 05-08 00:00: 00 02-25 00:00 :00 No [id number] 1{each} Insert 1 Each into vagina once every month. Insert vaginally and leave in place for 3 consecutiv e weeks, then remove for 1 week. [facility] ATENOLOL ORAL 04-24 16:33: 57 Yes Take by mouth. [facility] No known medications No Un morena [facility] Vital Signs Vital Name Observation Time Observation Value Comments S tristen Systolic blood pressure 2021-02-26 00:00:00 159 mm[Hg] [facility] Diastolic blood pressure 2021-02-26 00:00:00 112 mm[Hg] [facility] Heart rate 2021-02-26 00:00:00 77 /min [facility] Oxygen saturation in Arterial blood by Pulse oximetry 2021-02-26 00:00:00 99 /min [facility] Body temperature 2021-02-25 22:44:00 37.11 Ayana [facility] Respiratory rate 2021-02-25 22:44:00 18 /min [facility] Body height 2021-02-25 20:00:00 157.5 cm [facility] Body weight 2021-02-25 20:00:00 72.122 kg [facility] BMI 2021-02-25 20:00:00 29.08 kg/m2 [facility] Systolic blood pressure 2020-04-03 14:29:00 130 mm[Hg] [facility] Diastolic blood pressure 2020-04-03 14:29:00 60 mm[Hg] [facility] Heart rate 2020-04-03 14:29:00 84 /min [facility] Body temperature 2020-04-03 14:29:00 36.5 Ayana [facility] Respiratory rate 2020-04-03 14:29:00 18 /min [facility] Body height 2020-04-03 14:29:00 157.5 cm [facility] Body weight 2020-04-03 14:29:00 74.39 kg [facility] BMI 2020-04-03 14:29:00 30.00 kg/m2 [facility] Systolic blood pressure 2020-03-30 14:49:00 167 mm[Hg] [facility] Diastolic blood pressure 2020-03-30 14:49:00 113 mm[Hg] [facility] Heart rate 2020-03-30 14:49:00 69 /min [facility] Body temperature 2020-03-30 14:49:00 36.56 Ayana [facility] Respiratory rate 2020-03-30 14:49:00 16 /min [facility] Body height 2020-03-30 14:49:00 157.5 cm [facility] Body weight 2020-03-30 14:49:00 73.165 kg [facility] BMI 2020-03-30 14:49:00 29.50 kg/m2 [facility] Procedures Procedure Date / Time Performed Performing Clinicia n Source BI AXILLARY ULTRASOUND LEFT 2021-02-25 23:03:05 Liliana Green [facility] NOTICE OF PRIVACY PRACTICES 2021-02-25 19:25:30 Doctor Unassigned, [place] [facility] CONSENT/REFUSAL FOR DIAGNOSIS AND TREATMENT 2021-02-25 19:23:58 Doctor Unassigned, [place] [facility] HIV 1/2 AG-AB WITH REFLEX 2020-03-30 16:00:00 Asha Zayas [facility] GC & CHLAMYDIA AMPLIFIED ASSAY 2020-03-30 15:52:00 Asha Zayas [facility] NOTICE OF PRIVACY PRACTICES 2020-03-30 14:17:47 Doctor Unassigned, [place] [facility] EXTERNAL PROVIDER RECORDS Doctor Unassigned, [place] [facility] Encounters Start Date/Time End Date/Time Encounter Type Admission Type Attending Clinicians Care Facility Care Department Encounter ID Source 2023-03-23 14:07:15 Outpatient [facility] [id number] [facility] 2022-10-10 13:12:07 Outpatient [facility] [id number] [facility] 2022-09-19 08:53:15 Outpatient [facility] [id number] [facility] 2022-09-17 16:07:40 Outpatient [facility] [id number] [facility] 2022-09-16 14:16:29 Outpatient [facility] [id number] [facility] 2021-06-28 05:24:04 Emergency [facility] [id number] [facility] 2024-11-14 15:25:16 2024-11-14 15:25:16 Outpatient [facility] S[facility] [id number] Henrik Meyer 2024-10-17 13:23:02 2024-10-17 13:23:02 Outpatient SFA SFA [id number] Henrik Meyer 2023-07-10 00:00:00 2023-07-10 00:00:00 Outpatient LUDIVINA DAVIS [facility] [id number] [facility] 2022-11-14 00:00:00 2022-11-14 00:00:00 Outpatient DARRYL AUGUSTIN [facility] [id number] [facility] 2022-10-31 11:08:56 2022-10-31 12:03:22 Outpatient KARLYJANEY MONICA [facility] [id number] [facility] 2022-10-07 12:59:00 2022-10-20 06:40:00 Inpatient SUHAIL LOVETT [facility] [id number] [facility] 2022-09-17 15:52:00 2022-10-07 11:42:00 Outpatient AMBER, JOHNY [facility] [id number] [facility] 2022-09-17 15:52:00 2022-10-07 10:00:00 Inpatient [facility] [id number] [facility] 2021-02-25 15:04:00 2021-02-25 19:58:00 Emergency Liliana Green [facility] [id number] [facility] 2020-11-16 00:00:00 2020-11-16 00:00:00 Patient Outreach Ez Reina [facility] [id number] [facility] 2020-04-03 08:47:18 2020-04-03 10:54:33 Office Visit Mik [facility] Resident Antonio Howard [facility] [id number] [facility] 2020-04-03 09:30:00 2020-04-03 09:30:00 Outpatient R [facility] [id number] [facility] 2020-04-01 00:00:00 2020-04-01 00:00:00 Telephone Asha Zayas [facility]ILD [facility] [id number] [facility] 2020-03-30 09:30:10 2020-03-30 11:01:31 Office Visit Asha Zayas RaymondIssa [facility] [id number] [facility] 2020-03-30 10:00:00 2020-03-30 10:00:00 Outpatient ISSA GARCIA [facility] [id number] [facility] 2020-03-30 00:00:00 2020-03-30 00:00:00 Orders Only Doctor Unassigned, [place] [id number] [facility] 2020-03-27 08:45:00 2020-03-27 08:45:00 Outpatient ISSA GARCIA [facility] [id number] [facility] Orders Only Doctor Unassigned, [place] [facility] [id number] [facility] Results Test Description Test Time Test Comments Results Result Co mments Source [facility] [id number] 19:11:00* Test Item Value Reference Range Interpretation Comme nts C. trachomatis Nucleic Acid (test code = 17497-8) Negative Negative N. gonorrhoeae Nucleic Acid (test code = 40941-2) Negative Negative Lab Interpretation (test cod e = 05333-8) [facility] WITH [id number] 06:10:00* Test Item Value Reference Range Interpretation Comme nts HIV Semi-quantitative (test code = 48524-2) Negative Negative TAYA (test code = TAYA) Non-reactive for HIV-1 antigen and HIV-1/HIV-2 antibodies. ?No laboratory evidence of HIV infection. ?Repeat in 2-4 weeks if acute HIV infection is suspected. [facility] WITH [id number] 06:10:00* Test Item Value Reference Range Interpretation Comme nts HIV Semi-quantitative (test code = 11292-9) Negative Negative TAYA (test code = TAYA) Non-reactive for HIV-1 antigen and HIV-1/HIV-2 antibodies. ?No laboratory evidence of HIV infection. ?Repeat in 2-4 weeks if acute HIV infection is suspected. [facility]
[2025-04-14 08:05] LABS: Absolute Lymphocytes (CBC) 2.5 K/uL (0.7-4.9); Hematocrit 38.6 % (36.0-45.0); Hemoglobin 12.6 g/dL (12.0-15.0); MCH 27.7 pg (27.0-35.0); MCHC 32.8 g/dL (32.0-36.0); MCV 84.6 fL (80-100); MPV 8.4 fL (7.6-11.3); Nucleated RBC Absolute Count 0.0 (0-0); Nucleated Red Blood Cells % 0.0 % (0-0); RBC Red Blood Cell Count 4.56 M/uL (3.86-4.86); White Blood Count 6.00 thou/uL (4.3-10.9)
[2025-04-14 08:26] LABS: Anion Gap 6.9 mEq/L (5.0-15.0); BUN Blood Urea Nitrogen 8.0 mg/dL (7-18); Glucose Level 108.0 mg/dL (74-106); Potassium 2.9 mEq/L (3.5-5.1)
--- NOTE | 2025-04-14 08:28 | RAD REPORT ---
EXAMINATION: Ankle Right 3 View VIEWS: Three views CLINICAL INDICATION: Female, 40 years old. Deformity;Pain COMPARISON: No prior exam. IMPRESSION: Trimalleolar fracture/dislocation with significant ankle mortise disruption. The talus is dislocated posteriorly with respect to the distal tibia. There is significant displacement, angulation, and foreshortening at the distal fibula with fracture at the level of the syndesmosis which is widened. D isplaced medial malleolar and posterior malleolar fragments. .
[2025-04-14] MEDS ORDERED: NA CHLORIDE 0.9% 1,000 ML ONE (08:40)
[2025-04-14] MEDS ORDERED: POTASSIUM 25 MEQ EFFERV TAB ONE (09:51)
--- NOTE | 2025-04-14 09:58 | RAD REPORT ---
EXAMINATION: Ankle Right 2 View VIEWS: Two views CLINICAL INDICATION: Female, 40 years old. post reduction COMPARISON: No prior exam. IMPRESSION: Postreduction radiographs demonstrating improved alignment of the trimalleolar fracture. The ankle mo rtise does appear largely restored though a mortise view was not obtained. Relocated ankle.
--- NOTE | 2025-04-14 10:14 | ER ---
Nurse's Notes [facility] Name: Erin Hurst Age: 40 yrs Sex: Female : 1985 Arrival Date: 04/14/2025 Time: 07:50 Bed 5 Private MD: Diagnosis: Displaced trimalleolar fracture of right lower leg, initial encounter for closed fracture;Fall on same level, unspecified;Hypokalemia;Abrasion of right elbow;Contusion of right upper arm Presentation: 04/14 07:51 Chief complaint: EMS states: R ANKLE DEFORMITY. Coronavirus screen: At this time, the bp client does not indicate any symptoms associated with coronavirus-19. Ebola Screen: No symptoms or risks identified at this time. Initial Sepsis Screen: Does the patient meet any 2 criteria? No. Patient's initial sepsis screen is negative. Does the patient have a suspected source of infection? No. Patient's initial sepsis screen is negative. Risk Assessment: Do you want to hurt yourself or someone else? Patient reports no desire to harm self or others. Onset of symptoms is unknown. Care prior to arrival: Medication(s) given: 50 MCG FENT, 4 MG ZOFRAN IV initiated. 20 GA, in the left antecubital area. 07:51 Method Of Arrival: EMS: [facility] bp 07:51 Acuity: ALEXANDER 3 bp Triage Assessment: 07:53 General: Appears in no apparent distress. uncomfortable, Behavior is calm, cooperative, bp appropriate for age. Pain: Complains of pain in anterior aspect of right ankle. EENT: No deficits noted. Neuro: No deficits noted. Cardiovascular: No deficits noted. Respiratory: No deficits noted. GI: No signs and/or symptoms were reported involving the gastrointestinal system. : No signs and/or symptoms were reported regarding the genitourinary system. Derm: No deficits noted. Musculoskeletal: Bony deformity noted of right ankle. Injury Description: Deformity sustained to right ankle. Historical: - Allergies: 07:53 No Known Allergies; bp - PMHx: 07:53 Anxiety; Hypertension; bp - PSHx: 07:53 section; bp - Immunization history:: Adult Immunizations up to date. - Infectious Disease History:: Denies. - Social history:: Smoking status: Patient denies any tobacco usage or history of. Screenin:55 [facility] ED Fall Risk Assessment (Adult) History of falling in the last 3 months, bp including since admission Yes- single mechanical fall (1 pt) Confusion or Disorientation No (0 pts) Intoxicated or Sedated No (0 pts) Impaired Gait No (0 pts) Mobility Assist Device Used No (0 pt) Altered Elimination No (0 pt) Score/Fall Risk Level 0 - 2 = Low Risk Oriented to surroundings. Abuse screen: Denies threats or abuse. Denies injuries from another. Nutritional screening: No deficits noted. Tuberculosis screening: No symptoms or risk factors identified. Assessment: 08:00 General: SEE TRIAGE NOTE. bp 10:00 Reassessment: CONSCIOUS SEDATION WITH CLOSED REDUCTION OF RIGHT ANKLE COMPLETED WITHOUT bp INCIDENT. 10:40 Reassessment: DC ON HOLD FOR TRANSPORT. bp Vital Signs: 07:51 BP 172 / 109; Pulse 88; Resp 16; Temp 98; Pulse Ox 99% ; Weight 83.91 kg; bp 09:00 BP 178 / 114; Pulse 85; Resp 20; Pulse Ox 98% ; bp 10:00 BP 147 / 101; Pulse 70; Resp 14; Pulse Ox 99% ; bp 10:39 BP 151 / 98; Pulse 72; Resp 16; Pulse Ox 98% ; bp ED Course: 07:51 Patient arrived in ED. bp 07:51 Terrell Treviño DO is Attending Physician. ms3 07:53 Triage completed. bp 07:53 Arm band placed on. bp 07:54 Maintain EMS IV. Dressing intact. Good blood return noted. Site clean \T\ dry. Gauge \T\ bp site: 20 LAC. Flushed with 10 mL NS. 07:55 Patient has correct armband on for positive identification. bp 08:16 Denis Mancilla, RN is Primary Nurse. bp 08:17 Ankle Right 3 View XRAY In Process Unspecified. EDMS 08:57 Consent for conscious sedation explained by staff, explained by physician, signed by bp patient, Procedure consent explained by staff, explained by physician, signed by patient. 09:30 Ankle Right 2 View In Process Unspecified. EDMS 09:30 Orthoglass splint: stirrup splint applied on right leg. bp 10:08 Kenan Ramos MD is Referral Physician. ms3 10:08 Gary Salas MD is Referral Physician. ms3 10:09 Que Murray DPM is Referral Physician. ms3 10:39 No provider procedures requiring assistance completed. IV discontinued, intact, bp bleeding controlled, No redness/swelling at site. Pressure dressing applied. Administered Medications: 09:00 Drug: propofoL 1 mg/kg IV at calculated rate once; TO BE USED FOR REDUCTION. PLACE AT bp BEDSIDE! Route: IV; Rate: calculated rate; Site: left antecubital; 10:38 Follow up: IV Status: Completed infusion bp 09:15 Drug: Propofol IVP 40 mg IVP once; Document RASS score. Used during sedation Route: bp IVP; Site: left antecubital; 10:01 Follow up: Response: No adverse reaction bp 09:30 Drug: Potassium PO Effervescent Tablet 50 mEq PO once; dissolve in 4 ounces of water or bp juice Route: PO; 10:01 Follow up: Response: No adverse reaction bp 10:38 Drug: Boostrix Tdap IM 0.5 ml IM once; as a single dose Route: IM; Site: right deltoid; bp 10:38 Follow up: Response: No adverse reaction bp Outcome: 10:13 Discharge ordered by MD. ms3 10:57 Discharged to home via wheelchair, with family, bp 10:57 Condition: stable 10:57 Discharge instructions given to patient, Instructed on discharge instructions, follow up and referral plans. medication usage, Demonstrated understanding of instructions, follow-up care, medications, Prescriptions given X 1, 10:57 Patient left the ED. bp Signatures: Dispatcher [employer] EDMS Denis Mancilla, CARTER RN bp Terrell Treviño DO DO ms3 Corrections: (The following items were deleted from the chart) 08:17 07:51 BP 172 / 109; Pulse 88bpm; Resp 16bpm; Pulse Ox 99%; Temp 98F; bp bp 09:30 09:23 To radiology for Ankle Right 3 View+RAD.[email or web address].[email or web address]. bp EDMS
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
[2025-04-14] MEDS ORDERED: TDAP (DIPHTH,PERTUSS(ACELL),TET VAC) 0.5 ML VIAL IMVAC ONE (10:35)
[2025-04-14 15:15] VITALS: TEMP 98
[2025-04-14 15:18] VITALS: BP 178/114; O2SAT 98
== END 2025-04-14 10:57 | disposition home or self-care (01) ==
LOC: ER 07:50
DX: S82.851A Displaced trimalleolar fracture of right lower leg, initial encounter for closed fracture (principal); S50.311A Abrasion of right elbow, initial encounter; S40.021A Contusion of right upper arm, initial encounter; E87.6 Hypokalemia; W18.30XA Fall on same level, unspecified, initial encounter
CPT/HCPCS: 36415; 80048; 85025; 90715; 96365; 96366; 96372; 99285; J2704; J7030